=== PATIENT | female | born 1980 | race American Indian/Alaskan Native ===

== ENCOUNTER 2019-02-06 06:02 | Day surgery (SDC) | payer OTHER ==
[~2019-02-06 06:02] MED LIST: MARCAINE 0.5% INFILTRATI ONE; NACL 0.9% IR ONE
[2019-02-06 07:03] LABS: Basophils % (Auto) 0.4 % (0.0-1.8); Eosinophils # (Auto) 0.3 K/mm3 (0.0-0.4); Eosinophils % (Auto) 5.2 % (0.0-4.3); Hematocrit 39.8 % (30.3-42.9); Hemoglobin 12.9 gm/dl (10.1-14.3); Lymphocytes # (Auto) 1.6 K/mm3 (1.2-5.4); Lymphocytes % (Auto) 28.6 % (13.4-35.0); Mean Corpuscular HGB Conc 33 % (30-34); Mean Corpuscular Volume 86 fl (79-97); Monocytes # (Auto) 0.4 K/mm3 (0.0-0.8); Monocytes % (Auto) 7.5 % (0.0-7.3); Platelet Count 259 K/mm3 (140-440); Red Blood Count 4.62 M/mm3 (3.65-5.03); Red Cell Distribution Width 14.7 % (13.2-15.2)
--- NOTE | 2019-02-06 07:08 | Short Stay Summary ---
Short Stay Documentation Date of service: 02/06/19 Narrative H&P: 38y/o with a history of chronic pelvic pain. She reports worsening of her pain and discomfort. The patient has a history of uterine fibroids and underwent a UFE which helped to improve her vaginal bleeding however she continued to have pelvic pain. - History Principal diagnosis: Chronic pelvic pain Past Medical History: other (uterine fibroids) Past Surgical History: Other (myomectomy; UFE) - Allergies and Medications Current Medications: Allergies No Known Allergies Allergy (Unverified 02/05/19 16:36) Home Medications Medication Instructions Recorded Confirmed Last Taken Type ARIPiprazole [Aripiprazole] 5 mg PO DAILY 02/05/19 02/05/19 Unknown History Bupropion HCl [Wellbutrin XL] 300 mg PO QAM 02/05/19 02/05/19 Unknown History - Physical exam General appearance: no acute distress Integumentary: no rash HEENT: Atraumatic Lungs: Clear to auscultation Breasts: deferred Heart: Regular rate Gastrointestinal: normal Female Genitourinary: deferred Rectal Exam: deferred Extremities: no ischemia Neurological: Normal gait - Brief post op/procedure progress note Date of procedure: 02/06/19 Pre-op diagnosis: Chronic pelvic pain Post-op diagnosis: same Procedure: diagnostic laparoscopy chromopertubation Anesthesia: GETA Surgeon: JULIANNE DANIEL Estimated blood loss: minimal Pathology: none Condition: stable - Hospital course Hospital course: The patient was admitted the day of surgery and underwent a laparoscopy. See op note for details. Postop uncomplicated - Disposition Condition at discharge: Good Disposition: DC-01 TO HOME OR SELFCARE Short Stay Discharge Plan Activity: other (pelvic rest for one week) Diet: regular Additional Instructions: schedule followup with Dr. Gallardo in 2 weeks
[2019-02-06] MEDS ORDERED: MARCAINE 0.5% INFILTRATI ONE ×2 (07:15→08:19)
--- NOTE | 2019-02-06 07:15 | Anesthesia Day of Surgery ---
Anesthesia Day of Surgery - Day of Surgery Patient Examined: Yes Patient H&P Reviewed: Yes Patient is NPO: Yes
--- NOTE | 2019-02-06 07:18 | Anesthesia Consultation ---
Anesthesia Consult and Med Hx Date of service: 02/06/19 - Airway Anesthetic Teeth Evaluation: Caps ROM Head & Neck: Adequate Mental/Hyoid Distance: Adequate Mallampati Class: Class II Intubation Access Assessment: Probably Good - Pre-Operative Health Status ASA Pre-Surgery Classification: ASA2 Proposed Anesthetic Plan: General - Central Nervous System Hx Psychiatric Problems: Yes (Depression/Anxiety) - Gastrointestinal Hx Gastroesophageal Reflux Disease: Yes - Hematic Hx Sickle Cell Disease: No - Other Systems Hx Alcohol Use: Yes (Occas) Hx Cancer: No
[2019-02-06] MEDS ORDERED: DILAUDID IV PRN (07:20)
[2019-02-06] MEDS ORDERED: ZOFRAN IV PRN (07:20)
[2019-02-06] MEDS ORDERED: METHYLENE BLUE ONE (07:28)
[2019-02-06] MEDS ORDERED: ZEMURON IV ONE (07:30)
[2019-02-06] MEDS ORDERED: XYLOCAINE MPF 2% ONE (07:30)
[2019-02-06] MEDS ORDERED: DECADRON ONE (07:30)
[2019-02-06] MEDS ORDERED: SUBLIMAZE ONE ×2 (07:31→07:42)
[2019-02-06] MEDS ORDERED: DIPRIVAN 10 MG/ML IV ONE (07:31)
[2019-02-06 07:41] LABS: Alanine Aminotransferase 13 units/L (7-56); BUN/Creatinine Ratio 17; Blood Urea Nitrogen 12 mg/dL (7-17); Calcium 8.9 mg/dL (8.4-10.2); Hemolysis Index 7
[2019-02-06] MEDS ORDERED: TRANSDERM-SCOP TD ONE (07:42)
[2019-02-06] MEDS ORDERED: NACL 0.9% IR ONE (07:59)
[2019-02-06] MEDS ORDERED: METHYLENE BLUE IRRIGATION ONE (07:59)
[2019-02-06] MEDS ORDERED: LACTATED RINGERS 1,000 ML IV SCH (08:00)
--- NOTE | 2019-02-06 08:27 | Operative Report ---
Operative Report Operative Report: Date of surgery: 02/06/2019 Preoperative diagnosis: Chronic pelvic pain Postoperative diagnosis: Same as above Procedure: Diagnostic laparoscopy; chromopertubation Surgeon: Orin Roque M.D. Anesthesia: General endotracheal anesthesia Estimated blood loss: Minimal Findings: Normal uterus tubes and ovaries Indication: 38-year-old with a history of chronic pelvic pain. The patient had no improvement in her symptoms with medical management. Procedure: The patient was taken to the operating room and given general endotracheal anesthesia without complication. The patient is prepped and draped in a normal sterile fashion. A bivalve speculum was placed in the patient's vagina and a single-tooth tenaculum was placed on the anterior lip of the cervix .A uterine manipulator was placed with attachment of a syringe filled with diluted methylene blue, and the bivalve speculum was then removed. Attention was then turned to the patient's abdomen where a 5 mm infraumbilical skin incision was then made. A Veress needle was placed and peritoneal entry was verified water-filled syringe. Insufflation of the peritoneal cavity was performed with CO2 gas. A 5 mm trocar was placed and the laparoscope was then inserted. The patient was then placed in Trendelenburg. A 5 mm suprapubic skin incision was then made. Under direct visualization a 5 mm trocar was then placed. General survey of the patient's abdomen revealed normal uterus tubes and ovaries. A corpus luteum cyst was noted on the left ovary. The fallopian tube was then followed out to the fimbriated end. The dye was injected however unable to obtain adequate intrauterine pressure to sustain spillage from the fallopian tubes. General observation of the fallopian tubes demonstrated that the tubes were normal in appearance without evidence of adhesions. No endometriotic implants were noted. The 5 mm trocar was then removed. The pneumoperitoneum was then released. The 5 mm trocar laparoscope was then removed. The skin incisions were then closed with 4-0 Monocryl. The incisions were injected with quarter percent Marcaine. Dressings were applied to the incision. The vaginal instruments were then removed atraumatically. Then successfully extubated and taken to the recovery room. All sponge laps and needle counts were correct 2.
[2019-02-06] MEDS ORDERED: NORCO 5/325 PO PRN (09:00)
[2019-02-06] MEDS ORDERED: NORCO 5/325 ONE (09:03)
[2019-02-06 09:29] VITALS: BP 136/80
[2019-02-06] MEDS ORDERED: BLOXIVERZ ONE (10:36)
[2019-02-06] MEDS ORDERED: ROBINUL ONE (10:36)
--- NOTE | 2019-02-06 15:17 | Post Anesthesia Evaluation ---
- Post Anesthesia Evaluation Patient Participated: Yes Airway Patent: Yes Stable Respiratory Function: Yes Nausea/Vomiting: No Temp > 96.8F: Yes Pain Manageable: Yes Adequeate Hydration: Yes Anesthesia Complications: No Block Receding Appropriately: Not Applicable Patient on Ventilator: No
== END 2019-02-06 09:59 | disposition home or self-care (01) ==
LOC: OR 06:02
PROVIDERS: ATTEND Obstetrics & Gynecology
DX: R10.2 Pelvic and perineal pain (principal); G89.29 Other chronic pain; E78.00 Pure hypercholesterolemia, unspecified; K21.9 Gastro-esophageal reflux disease without esophagitis; F32.9 Major depressive disorder, single episode, unspecified; F41.9 Anxiety disorder, unspecified; Z72.89 Other problems related to lifestyle; Z98.890 Other specified postprocedural states; Z79.899 Other long term (current) drug therapy
CPT/HCPCS: 36415; 49320; 58350; 80053; 81025; 85025; J1100; J2405; J2704; J2710; J3010; J7120; Q9968

== ENCOUNTER 2022-03-17 16:22 | Emergency (ER) | payer OTHER ==
[2022-03-17] MEDS ORDERED: ACETAMINOPHEN 325 MG TAB PO ONE (21:40)
--- NOTE | 2022-03-17 23:21 | Cat Scan Report ---
CT HEAD WITHOUT CONTRAST INDICATION / CLINICAL INFORMATION: headache - small palpable frontal pea-sized mass. TECHNIQUE: All CT scans at this location are performed using CT dose reduction for ALARA by means of automated exposure control. COMPARISON: None available. FINDINGS: HEMORRHAGE: None. EXTRA-AXIAL SPACES: Normal in size and morphology for the patient's age. VENTRICULAR SYSTEM: Normal in size and morphology for the patient's age. CEREBRAL PARENCHYMA: No significant abnormality. No acute territorial infarct. MIDLINE SHIFT / HERNIATION: None. CEREBELLUM / BRAINSTEM: No significant abnormality. ORBITS: Normal as visualized. SOFT TISSUES: No significant abnormality. SKULL: No significant abnormality. PARANASAL SINUSES / MASTOID AIR CELLS: Normal as visualized. ADDITIONAL FINDINGS: None. IMPRESSION: 1. No acute intracranial abnormality. Signer Name: Maxime Beasley MD Signed: 03/17/2022 11:17 PM Workstation Name: [email or web address]
--- NOTE | 2022-03-17 23:29 | Emergency Department Report ---
ED Headache HPI - General Chief Complaint: Headache Stated Complaint: HEADACHE,IMAGING Time Seen by Provider: 03/17/22 21:28 Source: patient Exam Limitations: no limitations - History of Present Illness Initial Comments: Patient is a 41-year-old female who presents with a frontal headache for the last 2 months intermittently and now for the last 2 days its been constant. Yesterday morning she had some blurred vision. She has a tender "knot" on her mid frontal area where the pain is. This morning her pain was 9 out of 10. It has been constant but is now 2 out of 10. She took Tylenol this morning with relief. No focal weakness slurred speech or dysphagia. No respiratory symptoms. Recent Head Trauma: no recent headache/trauma Modifying Factors: worse with: exposure to light, movement Associated Symptoms: denies: confusion, fatigue, facial pain, fever/chills, flushing, loss of consciousness, nausea/vomiting, nasal congestion, nasal drainage, numbness in legs/feet, rash, seizures, sinus infection, stiff neck, vision changes, weakness Allergies/Adverse Reactions: Allergies No Known Allergies Allergy (Verified 03/17/22 16:48) Home Medications: Ambulatory Orders ARIPiprazole [Aripiprazole] 5 mg PO DAILY 02/05/19 Bupropion HCl [Wellbutrin XL] 300 mg PO QAM 02/05/19 AtorvaSTATin 03/17/22 ED Review of Systems ROS: Stated complaint: HEADACHE,IMAGING Other details as noted in HPI Comment: All other systems reviewed and negative Constitutional: denies: chills, fever Eyes: denies: eye pain, vision change ENT: denies: ear pain, throat pain, congestion Respiratory: no symptoms reported. denies: cough, orthopnea, shortness of breath Cardiovascular: denies: chest pain, palpitations, edema Endocrine: denies: intolerance to cold, intolerance to heat Gastrointestinal: denies: abdominal pain, nausea, vomiting Genitourinary: denies: dysuria, hematuria Musculoskeletal: denies: back pain, arthralgia, myalgia Skin: denies: rash Neurological: as per HPI. denies: weakness, numbness, paresthesias, confusion, abnormal gait, vertigo Psychiatric: denies: anxiety, depression Hematological/Lymphatic: denies: easy bleeding, easy bruising ED Past Medical Hx - Past Medical History Previous Medical History?: Yes Hx GERD: Yes Hx Sickle Cell Disease: No - Surgical History Past Surgical History?: No - Social History Smoking Status: Never Smoker Substance Use Type: Alcohol (Rare) - Medications Home Medications: Home Medications Medication Instructions Recorded Confirmed Last Taken Type ARIPiprazole [Aripiprazole] 5 mg PO DAILY 02/05/19 02/06/19 02/05/19 14:00 History Bupropion HCl [Wellbutrin XL] 300 mg PO QAM 02/05/19 03/17/22 02/05/19 14:00 History AtorvaSTATin 03/17/22 Unknown History ED Physical Exam - General Limitations: No Limitations General appearance: alert, in no apparent distress - Head Head exam: Present: atraumatic, normocephalic - Eye Eye exam: Present: normal appearance, PERRL, EOMI. Absent: scleral icterus, conjunctival injection - ENT ENT exam: Present: normal exam, mucous membranes moist, TM's normal bilaterally, other (Moderate turbinate edema) - Neck Neck exam: Present: normal inspection, full ROM. Absent: tenderness, meningismus - Respiratory Respiratory exam: Present: normal lung sounds bilaterally. Absent: respiratory distress, wheezes, rales, rhonchi - Cardiovascular Cardiovascular Exam: Present: regular rate, normal rhythm, normal heart sounds - GI/Abdominal GI/Abdominal exam: Present: soft. Absent: distended, tenderness - Extremities Exam Extremities exam: Absent: joint swelling - Neurological Exam Neurological exam: Present: alert, oriented X3, CN II-XII intact, normal gait, reflexes normal. Absent: motor sensory deficit - Psychiatric Psychiatric exam: Present: normal affect, normal mood - Skin Skin exam: Present: warm, dry, intact, normal color. Absent: cyanosis, diaphoretic ED Course Vital Signs 03/17/22 03/18/22 16:46 00:04 Temperature 98.6 F Pulse Rate 91 H 68 Respiratory 16 12 Rate Blood Pressure 133/89 127/78 [Right] O2 Sat by Pulse 99 100 Oximetry - Reevaluation(s) Reevaluation #1: 03/17/22 23:47 Resolution of pain with Tylenol ED Medical Decision Making - Radiology Data [facility] [address] [place] [address] Cat Scan Report Signed Patient: LAZARO MTZ MR#: [id number] : 1980 Acct:[id number] Age/Sex: 41 / F ADM Date: 03/17/22 Loc: ED Attending Dr: Ordering Physician: ERIBERTO PATRICK Date of Service: 03/17/22 Procedure(s): CT head/brain wo con Accession Number(s): [id number] cc: ERIBERTO PATRICK CT HEAD WITHOUT CONTRAST INDICATION / CLINICAL INFORMATION: headache - small palpable frontal pea-sized mass. TECHNIQUE: All CT scans at this location are performed using CT dose reduction for ALARA by means of automated exposure control. COMPARISON: None available. FINDINGS: HEMORRHAGE: None. EXTRA-AXIAL SPACES: Normal in size and morphology for the patient's age. VENTRICULAR SYSTEM: Normal in size and morphology for the patient's age. CEREBRAL PARENCHYMA: No significant abnormality. No acute territorial infarct. MIDLINE SHIFT / HERNIATION: None. CEREBELLUM / BRAINSTEM: No significant abnormality. ORBITS: Normal as visualized. SOFT TISSUES: No significant abnormality. SKULL: No significant abnormality. PARANASAL SINUSES / MASTOID AIR CELLS: Normal as visualized. ADDITIONAL FINDINGS: None. IMPRESSION: 1. No acute intracranial abnormality. Signer Name: Drew Cuadra MD Signed: 03/17/2022 11:17 PM Workstation Name: [id number] Transcribed By: Dictated By: DREW CUADRA MD Electronically Authenticated By: DREW CUADRA MD Signed Date/Time: 03/17/222316 DD/ 14 TD/TT: - Medical Decision Making Normal CT scan and resolution with Tylenol believe this is benign. We will have her follow-up with her primary care doctor for further evaluation if not im proving. Do recommend fluticasone and warm compresses to the sinuses as I do believe there is some rhinitis component to this. - Differential Diagnosis Headache. Intracranial or cranial abnormality. Rhinitis. Critical care attestation.: If time is entered above; I have spent that time in minutes in the direct care of this critically ill patient, excluding procedure time. ED Disposition Clinical Impression: Headache, Rhinitis Disposition: 01 HOME / SELF CARE / HOMELESS Is pt being admited?: No Condition: Stable Instructions: General Headache Without Cause, Nonallergic Rhinitis Additional Instructions: Tylenol as needed for pain. Follow-up with her primary care doctor for further evaluation if not improving. Do recommend fluticasone and warm compresses to the sinuses as I do believe there is some rhinitis component to this. Referrals: AIDA LOFTON MD [Staff Physician] - 3-5 Days Forms: Work/School Release Form(ED) Time of Disposition: 23:50
[2022-03-18 00:11] VITALS: BP 127/78
== END 2022-03-18 00:25 | disposition home or self-care (01) ==
LOC: ED 16:22
DX: R51.9 Headache, unspecified (principal); J00 Acute nasopharyngitis [common cold]; F10.20 Alcohol dependence, uncomplicated
CPT/HCPCS: 70450; 99283